=== PATIENT | female | born 1990 | race Caucasian/White ===

== ENCOUNTER → 2020-12-12 | Outpatient (CLI) | payer BC ==
--- NOTE | 2020-12-12 09:42 | US ---
EXAMINATION TYPE: US OB >= 14 wk fetus DATE OF EXAM: 12/12/2020 COMPARISON: None CLINICAL HISTORY: Z34.90 supervision of normal TECHNIQUE: Transabdominal (TA) GESTATIONAL AGE / DATING Physician Established: Not yet established Dates by LMP: ( 21 weeks/3 days) EDC: 04-21-21 Dates by First Scan: No previous this is first scan Dates by Current Scan: (21 weeks/0 days) EDC: 04-24-21 SURVEY IUP: Single PLACENTA: Posterior PREVIA: No Previa NELLA: 13.3 cm CERVICAL LENGTH (transabdominal: norm > 3.0cm): 3.3 cm BIOMETRY PRESENTATION: Variable BPD: 4.9 cm 20 weeks / 6 days HC: 18.8 cm 21 weeks / 1 days AC: 16.3 cm 21 weeks / 3 days FL: 3.7 cm 21 weeks / 5 days ESTIMATED WEIGHT IN GRAMS: 427 grams ESTIMATED WEIGHT IN LBS/OZ: 0 lbs. 15 oz. WEIGHT PERCENTAGE BASED ON ESTABLISHED DATES: 47 % HC/AC: 1.1 FL/AC: 22.6 HEART RATE: 144 bpm IMPRESSION: Viable 21 weeks 0 days with a heart rate 144 beats per
== END | disposition home or self-care (01) ==
LOC: RADUSWWP 08:52
PROVIDERS: ATTEND Obstetrics & Gynecology
DX: Z34.92 Encounter for supervision of normal pregnancy, unspecified, second trimester (principal); Z3A.21 21 weeks gestation of pregnancy
CPT/HCPCS: 76805

== ENCOUNTER → 2021-02-16 | Outpatient (CLI) | payer BC ==
--- NOTE | 2021-02-17 09:37 | US ---
EXAMINATION TYPE: US OB anatomy transabd DATE OF EXAM: 02/16/2021 COMPARISON: NONE HISTORY: Z34.90 supervision of normal TECHNIQUE: Transabdominal (TA) EXAM MEASUREMENTS: GESTATIONAL AGE / DATING Physician Established: (30 weeks/6 days) EDC: 04/21/21 Dates by LMP: unknown Dates by First Scan: (30 weeks/3 days) EDC: 04/24/21 Dates by Current Scan for: (30 weeks/2 days) EDC: 04/25/21 SURVEY IUP: Single PLACENTA: Posterior PREVIA: No previa NELLA: 10.6 cm Normal CERVICAL LENGTH (transabdominal: norm > 3.0cm): 3.8 cm BIOMETRY PRESENTATION: Vertex LIE: Longitudinal BPD: 7.3 cm 29 weeks / 2 days HC: 28.1 cm 30 weeks / 5 days AC: 26.5 cm 30 weeks / 4 days FL: 6.0 cm 31 weeks / 3 days ESTIMATED WEIGHT IN GRAMS: 1632 grams ESTIMATED WEIGHT IN LBS/OZ: 3 lbs. 10 oz. WEIGHT PERCENTAGE BASED ON ESTABLISHED DATE: 33.8 % HC/AC: 1.06 Normal FL/AC: 22.81 Normal HEART RATE: 138 bpm RHYTHM: Normal ANATOMY SEEN (within normal limits): * Cisterna Magna (< 1.1 cm) 0.5 cm * Cerebellum (varies with age) 3.3 cm Choroid Plexus (bilateral) Midline Falx Cavus Septi Pellucidi Four Chamber Heart Stomach Situs Nose / Lips Diaphragm Kidneys (bilateral) Bladder Cord Insert Three Vessel Cord Longitudinal Spine Transverse Spine Legs (bilateral) ANATOMY NOT SEEN: due to age and position * Lateral Vent (< 1 cm) cm Outflow tracts: LVOT/RVOT Arms (bilateral) IMPRESSION: Single live intrauterine measuring approximately 30 weeks and 2 days gestation. Nonvisualiz ation of the lateral ventricles, LVOT/RVOT and arms due to position and age. Prominence of the renal pelvices bilaterally is amenable to follow-up.
== END | disposition home or self-care (01) ==
LOC: RADUSWWP 13:46
PROVIDERS: ATTEND Obstetrics & Gynecology
DX: Z3A.30 30 weeks gestation of pregnancy (principal)
CPT/HCPCS: 76811